=== PATIENT | male | born 1965 | race Caucasian/White ===

== ENCOUNTER 2018-08-28 10:39 | Emergency (ER) | payer SELFPAY ==
[~2018-08-28] VITALS: Ht 175.3 cm; Wt 73.0 kg
[2018-08-28 10:44] VITALS: BP 189/113
== END 2018-08-28 11:16 | disposition left against medical advice (07) ==
LOC: ER 10:39
DX: R00.0 Tachycardia, unspecified (principal); R55 Syncope and collapse; F17.200 Nicotine dependence, unspecified, uncomplicated
CPT/HCPCS: 99283